=== PATIENT | male | born 1940 | race Two or more races ===

== ENCOUNTER 2021-07-23 18:45 | Inpatient (IN) | payer OTHER ==
[~2021-07-23] VITALS: Ht 170.2 cm; Wt 59.0 kg
[2021-07-23] MEDS ORDERED: ZESTRIL5 MG PO (19:11)
[2021-07-23] MEDS ORDERED: SYNTHROID50 MCG PO (19:12)
[2021-07-23] MEDS ORDERED: RISPERDAL4 MG PO (19:12)
[2021-07-24] MEDS ORDERED: FINASTERIDE5 MG (09:18)
[2021-07-24] MEDS ORDERED: PENTOXIFYLLINE400 MG (09:18)
[2021-07-24] MEDS ORDERED: TAMSULOSIN HCL0.4 MG (09:18)
[2021-07-24] MEDS ORDERED: FLUOXETINE HCL20 MG (09:18)
[2021-07-24] MEDS ORDERED: TRAZODONE HCL50 MG (09:18)
[2021-07-24] MEDS ORDERED: CLONAZEPAM0.5 MG (09:19)
[2021-08-07] MEDS ORDERED: VANCOMYCIN HCL1 GM PO (12:42)
[2021-08-07] MEDS ORDERED: INTESTINEX680 M1 PO (12:43)
== END 2021-08-07 16:13 | disposition home or self-care (01) | DRG 193 ==
LOC: ER 18:45 → MEDI 23:55 → SEC-K 23:55 → MEDI 07-24 09:41
PROVIDERS: ADMIT Internal Medicine; ATTEND Internal Medicine
PROC: BW21ZZZ Computerized Tomography (CT Scan) of Abdomen and Pelvis (ICD-10-PCS; 2021-07-23)
PROC: 3E0F7GC Introduction of Other Therapeutic Substance into Respiratory Tract, Via Natural or Artificial Opening (ICD-10-PCS; 2021-07-24)
PROC: 8E0ZXY6 Isolation (ICD-10-PCS; 2021-07-27)
PROC: 3E0F7SF Introduction of Other Gas into Respiratory Tract, Via Natural or Artificial Opening (ICD-10-PCS; 2021-07-28)
PROC: 4A033R1 Measurement of Arterial Saturation, Peripheral, Percutaneous Approach (ICD-10-PCS; 2021-07-28)
PROC: 0DH63UZ Insertion of Feeding Device into Stomach, Percutaneous Approach (ICD-10-PCS; principal; 2021-07-30)
DX: J18.8 Other pneumonia, unspecified organism (principal); A41.89 Other specified sepsis; N39.0 Urinary tract infection, site not specified; D72.828 Other elevated white blood cell count; K56.41 Fecal impaction; R13.19 Other dysphagia; R09.02 Hypoxemia; K59.9 Functional intestinal disorder, unspecified; J98.09 Other diseases of bronchus, not elsewhere classified; I10 Essential (primary) hypertension; G30.8 Other Alzheimer's disease; F02.80 Dementia in other diseases classified elsewhere, unspecified severity, without behavioral disturbance, psychotic disturbance, mood disturbance, and anxiety; E11.9 Type 2 diabetes mellitus without complications; N40.0 Benign prostatic hyperplasia without lower urinary tract symptoms; B96.1 Klebsiella pneumoniae [K. pneumoniae] as the cause of diseases classified elsewhere; B96.5 Pseudomonas (aeruginosa) (mallei) (pseudomallei) as the cause of diseases classified elsewhere; B96.4 Proteus (mirabilis) (morganii) as the cause of diseases classified elsewhere; Z79.4 Long term (current) use of insulin; Z74.01 Bed confinement status; Z66 Do not resuscitate; Z20.822 Contact with and (suspected) exposure to COVID-19